=== PATIENT | female | born 1965 | race Caucasian/White ===

== ENCOUNTER 2016-03-25 09:36 | Inpatient (IN) ==
[2016-03-25] MEDS ORDERED: ONDANSETRON 4 MG/2 ML VIAL IV STA (09:56)
[2016-03-25] MEDS ORDERED: SODIUM CHLORIDE 0.9% 1,000 ML IV STA (09:56)
[2016-03-25] MEDS ORDERED: fentaNYL 100 MCG/2 ML VIAL IV STA ×2 (10:01→11:11)
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
[2016-03-25] MEDS ORDERED: ONDANSETRON 4 MG/2 ML VIAL ONE (10:11)
[2016-03-25] MEDS ORDERED: fentaNYL 100 MCG/2 ML VIAL ONE ×2 (10:12→11:12)
[2016-03-25 10:22] LABS: Basophils % 0.4 % (0.0-0.8); Eosinophils % 0.2 % (0.00-10.9); Hematocrit 31.5 VOL% (35.7-47.0); Hemoglobin 9.3 GM/DL (12.0-16.0); Immature Granulocytes % 0.9 %; Immature Granulocytes Absolute 0.05 #; Lymphocytes # 0.6 10*3/uL (1.4-4.0); Lymphocytes % 10.6 % (21.3-54.2); Mean Corpuscular HGB Conc 29.5 GM/DL (32-36); Mean Corpuscular Hemoglobin 21 PG (27-34); Mean Corpuscular Volume 71.6 FL (87-102); Mean Platelet Volume 11.8 FL (9.6-12.0); Monocytes # 0.3 10*3/uL (0.11-0.8); Monocytes % 5.3 % (1.7-12.7); Neutrophils # 4.7 10*3/uL (1.4-7.4); Neutrophils % 82.6 % (38.7-73.9); Platelet Count 193 10*3/uL (130-400); Red Cell Distribution Width 16.7 % (9.3-17.3); White Blood Count 5.7 10*3/uL (4.5-13.71)
[2016-03-25 10:42] LABS: Albumin 4.2 G/DL (3.4-5.0); Calcium 9.2 MG/DL (8.5-10.1); Osmolality,Calculated 282.1 MOS/KG (273-304); Potassium 3.9 MMOL/L (3.5-5.1); Total Protein 8.1 G/DL (6.4-8.3)
--- NOTE | 2016-03-25 10:58 | XRay Report ---
Exam: XR abdomen 2V Date: 03/25/2016 9:58 AM Comparison: 02/10/2016 Indication: Abdominal pain Findings: Lung bases are unremarkable. The liver is unremarkable. Renal contours /spleen are mostly obscured The bony structures are intact No obvious pneumoperitoneum Nonspecific GI pattern. Phleboliths are present in the true pelvis Impression: 1. Nonspecific GI pattern with moderate scattered fecal debris. PROCEDURE INTERPRETED AT [facility] DEPARTMENT OF RADIOLOGY Final Report Signed by: Dr. Atif Torres
[2016-03-25 11:07] LABS: Apearance,Urine Slightly Hazy (Clear); Bilirubin,Urine Negative (Negative); Blood, Urine Negative (Negative); Glucose,Urine (UA) Negative (Negative); Ketones,Urine 80 mg/dL (Negative); Mucus,Urine Occasional /LPF (Occasional); Nitrite,Urine Negative (Negative); Protein,Urine 30 MG/DL; Squamous Epithelial Cell,Urine Occasional /HPF (0-10); Urine Color Yellow (Yellow); Urine Specific Gravity 1.027 (1.001-1.035); Urine Urobilinogen < 2.0 EU/DL (0.2-1.0); WBC,Urine 1 /HPF (0-6)
[2016-03-25 11:16] LABS: Barbiturates Screen,Urine Negative (Negative); Benzodiazepines Screen,Urine Negative (Negative); Cannabinoid Screen,Urine Negative (Negative); Opiate Screen,Urine Negative (Negative); Phencyclidine Screen,Urine Negative (Negative)
[2016-03-25] MEDS ORDERED: FAMOTIDINE 20 MG/2 ML VIAL IV STA (11:29)
[2016-03-25] MEDS ORDERED: HYDROmorphone 2 MG/1 ML VIAL IV STA ×2 (11:30→13:59)
[2016-03-25] MEDS ORDERED: HYDROmorphone 2 MG/1 ML VIAL ONE ×2 (12:02→14:00)
[2016-03-25] MEDS ORDERED: FAMOTIDINE 20 MG/2 ML VIAL IV ONE (12:03)
[2016-03-25 12:50] LABS: Hypochromasia 2+; Microcytosis 1+; Target Cells Slight
--- NOTE | 2016-03-25 12:51 | CT Report ---
Exam: CT abdomen pelvis wo con Date: 03/25/2016 11:33 AM Comparison: 01/03/2016 Indication: Left abdominal pain history of pancreatitis Total DLP: 293.2 mGy*cm Technical: Images were obtained from the lung bases to the iliac crest continuation through the pelvis without IV or oral contrast. Axial sagittal coronal imaging available for review. Dose reduction was performed with decreasing kv and mA and automated exposure. The patient gives a history of allergy to contrast. Findings: Lung bases:No obvious infiltrate or effusion heart normal in size. Liver and Spleen: Unremarkable Gallbladder and Pancreas: Gallbladder is not well seen. Pancreas is demonstrated without focal mass lesion or bile duct or pancreatic duct dilatation Adrenals: Unremarkable Kidneys: Kidneys are otherwise unremarkable. No obvious stones or structural present. Stomach:Incompletely distended with air-fluid and debris Retroperitoneum: No enlarged lymph nodes. Aorta and IVC: The aorta and IVC are unremarkable. Bowel and Mesentery: The appendix is demonstrated without obvious abnormality. A few scattered diverticula changes are present in the rectosigmoid colon. No free fluid or mass lesions present. No obvious pneumoperitoneum Pelvis: Bladder: Incompletely distended. Fluid: No free fluid identified. Lymph nodes: No enlarged lymph nodes. Pelvic organs: The uterus is surgically absent. Phleboliths are present. Ovaries also appear to be surgically absent Osseous structures: No suspicious appearing osseous abnormalities noted. Impression: 1. Minimal diverticulosis without diverticulitis 2. No obvious free fluid or evidence of acute pancreatitis demonstrated on the noncontrast study 3. Previous hysterectomy and possible cholecystectomy Findings discussed with Dr. Prince Baltazar PROCEDURE INTERPRETED AT [facility] DEPARTMENT OF RADIOLOGY Final Report Signed by: Dr. Atif Torres
[2016-03-25] MEDS ORDERED: LACTULOSE 20 GM/30 ML UDCUP PO PRN (14:57)
[2016-03-25] MEDS ORDERED: ACETAMINOPHEN 325 MG TABLET PO PRN (14:57)
[2016-03-25] MEDS ORDERED: MORPHINE 2 MG/1 ML SYRINGE IV PRN (14:57)
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
[2016-03-25] MEDS: HYDROmorphone 2 MG/1 ML VIAL IV PRN ×2 (18:01→22:05)
[2016-03-25] MEDS: ENOXAPARIN 40 MG/0.4 ML SYRINGE SUBCUT SCH (18:04)
[2016-03-25] MEDS: METOCLOPRAMIDE 5 MG TABLET PO SCH ×2 (18:05→21:32)
[2016-03-25] MEDS: DEXTROSE 5% NACL 0.45% 1,000 ML IV SCH (18:09)
[2016-03-25] MEDS: traZODone 50 MG TABLET PO SCH (21:31)
[2016-03-25] MEDS: PANTOPRAZOLE 40 MG VIAL IV SCH (21:31)
[2016-03-25] MEDS: PHENYTOIN ER 100 MG CAPSULE PO SCH (21:32)
[2016-03-25] MEDS: FAMOTIDINE 20 MG TABLET PO SCH (21:32)
[2016-03-26] MEDS: DEXTROSE 5% NACL 0.45% 1,000 ML IV SCH ×4 (00:25→18:00)
[2016-03-26] MEDS: ONDANSETRON 4 MG/2 ML VIAL IV PRN ×3 (01:46→17:10)
[2016-03-26] MEDS: HYDROmorphone 2 MG/1 ML VIAL IV PRN ×11 (01:46→23:37)
[2016-03-26 07:16] LABS: Albumin 3.3 G/DL (3.4-5.0); Bilirubin,Total 1.1 MG/DL (0.2-1.0); Calcium 8.4 MG/DL (8.5-10.1); Osmolality,Calculated 285.8 MOS/KG (273-304); Potassium 3.8 MMOL/L (3.5-5.1); Total Protein 5.8 G/DL (6.4-8.3)
[2016-03-26 07:36] LABS: Basophils % 0.3 % (0.0-0.8); Eosinophils % 0.5 % (0.00-10.9); Hematocrit 24.9 VOL% (35.7-47.0); Immature Granulocytes % 0.3 %; Immature Granulocytes Absolute 0.01 #; Lymphocytes # 0.8 10*3/uL (1.4-4.0); Lymphocytes % 20.9 % (21.3-54.2); Mean Corpuscular HGB Conc 28.9 GM/DL (32-36); Mean Corpuscular Hemoglobin 21 PG (27-34); Monocytes # 0.4 10*3/uL (0.11-0.8); Monocytes % 10.7 % (1.7-12.7); Neutrophils # 2.5 10*3/uL (1.4-7.4); Neutrophils % 67.3 % (38.7-73.9); Red Cell Distribution Width 16.9 % (9.3-17.3)
[2016-03-26 07:41] LABS: Red Blood Count 3.46 10*6/uL (3.8-5.5); White Blood Count 3.6 10*3/uL (4.5-13.71)
[2016-03-26 07:42] LABS: Hemoglobin 7.2 GM/DL (12.0-16.0); Platelet Count 147 10*3/uL (130-400)
[2016-03-26 07:59] LABS: Hypochromasia 1+; Microcytosis 1+; Ovalocytes Slight
[2016-03-26 08:00] LABS: Platelet Estimate Adequate
[2016-03-26] MEDS: METOCLOPRAMIDE 5 MG TABLET PO SCH ×4 (08:30→20:25)
[2016-03-26] MEDS: PANTOPRAZOLE 40 MG VIAL IV SCH ×3 (08:47→20:25)
[2016-03-26] MEDS: PHENYTOIN ER 100 MG CAPSULE PO SCH ×4 (08:48→20:24)
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
[2016-03-26] MEDS: LIPASE/PROTEASE/AMYLASE 4,200 UNITS CAPSULE PO SCH ×4 (10:57→20:29)
--- NOTE | 2016-03-26 12:58 | Hospitalist Progress Note ---
Assessment and Plan (1) Epigastric pain Status: Acute Current Visit: Yes (2) Anemia Status: Chronic Assessment and plan: we will transfuse two units of blood today and recheck H/H in the morning Current Visit: Yes (3) Acute on chronic pancreatitis Status: Acute Assessment and plan: Lipase is normal Abdomen is generally tender She is requesting that her Duragesic patch be restarted, we will restart this but DECREASE the frequency of her Dilaudid Current Visit: No Hospitalist: Subjective Interval history: Ms. Peralta seems to be resting comfortably this morning. She is still having tenderness on exam. She repeatedly tells me that it usually takes 2-3 days of IV fluids and narcotics for her to improve. She states she is not eating anything off of her clear liquid diet, that she has been too nauseated. She states the Zofran really does not help her much. She denies vomiting or diarrhea. Her H/H on arrival was 9/, with hydration she has dropped to 7/24. She denies any active bleeding, abdomen does not seem acutely tender, I have seen her before and her presentation is very similar. Exam - Constitutional Vitals: Period Temp Pulse Resp BP Sys/Oscar Pulse Ox Last 24 Hr 97.5 F-99.2 F 66-83 16-20 113-158/54-104 96-100 General appearance: no acute distress - Head Head exam: Present: normal inspection, normocephalic - Eye Eye exam: Present: EOMI. Absent: scleral icterus Pupils: Present: SABI, normal accommodation - ENT ENT exam: Present: normal exam, normal oropharynx - Neck Neck exam: Present: normal inspection. Absent: lymphadenopathy - Respiratory Respiratory exam: Present: clear to auscultation bilaterally. Absent: wheezes - Cardiovascular Cardiovascular exam: Present: regular rate and rhythm. Absent: tachycardia - GI/Abdominal GI/Abdominal exam: Present: normal bowel sounds, tenderness (generalized tenderness ), soft - Extremities Exam Extremities exam: Present: normal inspection, full ROM. Absent: edema - Back Exam Back exam: Present: normal inspection. Absent: muscle spasm - Neurological Exam Neurological exam: Present: alert, oriented X3 - Psychiatric Psychiatric exam: Present: normal affect, normal mood - Skin Skin exam: Present: normal color, warm, dry Results - Labs CBC & BMP: 03/26/16 07:21 03/26/16 06:23 Lab Results: I have reviewed the past 24 hour labs
[2016-03-26] MEDS ORDERED: SODIUM CHLORIDE 0.9% 250 ML IV PRN (16:53)
[2016-03-26] MEDS: ENOXAPARIN 40 MG/0.4 ML SYRINGE SUBCUT SCH (17:06)
[2016-03-26] MEDS: traZODone 50 MG TABLET PO SCH ×2 (19:43→20:24)
[2016-03-26] MEDS: FAMOTIDINE 20 MG TABLET PO SCH ×2 (19:44→20:25)
[2016-03-27] MEDS: HYDROmorphone 2 MG/1 ML VIAL IV PRN ×9 (01:33→22:30)
[2016-03-27 05:23] LABS: Basophils % 0.3 % (0.0-0.8); Eosinophils # 0.1 10*3/uL (0.0-0.87); Hematocrit 28.8 VOL% (35.7-47.0); Hemoglobin 8.5 GM/DL (12.0-16.0); Lymphocytes # 1.2 10*3/uL (1.4-4.0); Lymphocytes % 39.7 % (21.3-54.2); Mean Corpuscular HGB Conc 29.5 GM/DL (32-36); Mean Corpuscular Hemoglobin 22 PG (27-34); Mean Corpuscular Volume 74.8 FL (87-102); Mean Platelet Volume 12.2 FL (9.6-12.0); Monocytes # 0.4 10*3/uL (0.11-0.8); Monocytes % 12.8 % (1.7-12.7); Neutrophils # 1.4 10*3/uL (1.4-7.4); Neutrophils % 44.2 % (38.7-73.9); Platelet Count 143 10*3/uL (130-400); Red Blood Count 3.85 10*6/uL (3.8-5.5); Red Cell Distribution Width 18.3 % (9.3-17.3); White Blood Count 3.1 10*3/uL (4.5-13.71)
[2016-03-27 05:44] LABS: Calcium 8.3 MG/DL (8.5-10.1); Osmolality,Calculated 287.6 MOS/KG (273-304); Potassium 3.6 MMOL/L (3.5-5.1)
[2016-03-27 05:51] LABS: % Iron Saturation 6.3 % (18-50); Ferritin 4.9 ng/ml (8-252)
[2016-03-27 06:02] LABS: Hypochromasia 1+; Ovalocytes Slight; Platelet Estimate Normal
[2016-03-27] MEDS: PANTOPRAZOLE 40 MG VIAL IV SCH ×2 (08:10→20:19)
[2016-03-27] MEDS: PHENYTOIN ER 100 MG CAPSULE PO SCH ×3 (08:10→20:19)
[2016-03-27] MEDS: LIPASE/PROTEASE/AMYLASE 4,200 UNITS CAPSULE PO SCH ×3 (08:10→18:22)
[2016-03-27] MEDS: METOCLOPRAMIDE 5 MG TABLET PO SCH ×4 (08:10→20:18)
[2016-03-27] MEDS: DEXTROSE 5% NACL 0.45% 1,000 ML IV SCH ×3 (08:26→16:19)
--- NOTE | 2016-03-27 08:26 | Hospitalist Progress Note ---
Assessment and Plan (1) Abdominal pain Status: Chronic Assessment and plan: Both documented episodes of pancreatitis and visits without objective documentation. Extensive imaging over the last year does not show mass etc. Current Visit: No (2) Anemia Status: Chronic Assessment and plan: Iron deficient pattern, transfused 03/26. Has reported bright blood per rectum, record review shows gradual progression of series of CBC since September. Current Visit: Yes Qualifiers: Anemia type: iron deficiency Iron deficiency anemia type: chronic blood loss Qualified Code(s): D50.0 - Iron deficiency anemia secondary to blood loss (chronic) Hospitalist: Subjective Interval history: 50 yo female followed in pain clinic for chronic pain disorder. Fpc therapy for chronic pancreatitis with enzyme replacement therapy. Several ER visits over the last several months with normal lipase levels ( last substantial elevation was in September) and MRI of pancreas in December showing no mass etc. On this occasion admitted with abdominal pain with emesis. Initial lipase was normal and comparable to prior determinations with CT of the abdomen showing no inflammatory changes and no pancreatic calcifications. This morning lipase is reported at 409. Received blood transfusion for rehydration anemia with iron deficit on pretransfusion lab work. Anemia has been progressive since September admission. She did eat some yesterday. Exam - Constitutional Vitals: Period Temp Pulse Resp BP Sys/Oscar Pulse Ox Last 24 Hr 97.3 F-97.9 F 52-90 18-20 84-129/39-85 96-98 General appearance: no acute distress, over weight - Respiratory Respiratory exam: Present: clear to auscultation bilaterally. Absent: rales, rhonchi, wheezes - Cardiovascular Cardiovascular exam: Present: regular rate and rhythm, other (systolic ejection click) - GI/Abdominal GI/Abdominal exam: Present: hyperactive bowel sounds, tenderness. Absent: ascites, distended - Extremities Exam Extremities exam: Absent: edema - Neurological Exam Neurological exam: Present: alert, oriented X3 Results - Labs CBC & BMP: 03/27/16 04:31 03/27/16 04:31 Labs: iron 22/312 6% lipase 409
--- NOTE | 2016-03-27 10:17 | Gastrointestinal Progress Note ---
Assessment and Plan (1) Abdominal pain Status: Chronic Assessment and plan: 03/27-No nausea but pain continues. Appears comfortable at present. Lipase elevated. No BM yet for fecal elastase test. Iron studies low. Plan and addendum to follow by Dr Mercer. 03/26-4 day history of LUQ with associated N/V and diarrhea. Afebrile. Hx of chronic pancreatitis. Lipase 186. CT w/o contrast negative. Plan and addendum to follow by Dr Mercer. Current Visit: No Gastroenterology - PN: Subj Interval history: CC: Abd pain Pt is awake, alert, sitting up in bed. States the pain seems to be the same at present time. She states she has not had nausea since last night. Her lipase levels are elevated today at 409. She also had iron studies done which are low. She does not recall having anemia in the past other than childhood and . She states that she does bleed bright red blood, what she describes as a lot, for a week out of every month. She states this has been going on for a while due to she has not had time to see Dr Keene to have consultation for her hemorrhoids. She received 2 units last night and hgb 8.5, up from 7.2. No overt bleeding at present. Abdomen is soft, tender to palpation. ROS: Denies SOB or chest pain Exam (Progress Note) - Constitutional Vitals: Period Temp Pulse Resp BP Sys/Oscar Pulse Ox Last 24 Hr 97.3 F-97.9 F 52-90 18-20 84-129/39-85 96-98 - Other Additional findings: General appearance: normal weight, no acute distress - Head Head exam: Present: normal inspection, normocephalic - Eye Eye exam: Present: other (lids and conjunctiva unremarkable). Absent: scleral icterus - ENT ENT exam: Present: normal exam, normal oropharynx - Neck Neck exam: Present: normal inspection - Respiratory Respiratory exam: Present: clear to auscultation bilaterally. Absent: rales, rhonchi, wheezes - Cardiovascular Cardiovascular exam: Present: regular rate and rhythm. Absent: diastolic murmur , JVD, systolic murmur - GI/Abdominal GI/Abdominal exam: Present: normal bowel sounds, soft. Absent: ascites, distended, mass, organomegaly, tenderness - Extremities Exam Extremities exam: Present: normal inspection, full ROM - Back Exam Back exam: Present: normal inspection - Neurological Exam Neurological exam: Present: alert, oriented X3 - Psychiatric Psychiatric exam: Present: normal affect, normal mood - Skin Skin exam: Present: normal color, warm, dry Results - Labs CBC & BMP: 03/27/16 04:31 03/27/16 04:31 Lab Results: I have reviewed the past 24 hour labs
[2016-03-27] MEDS: ENOXAPARIN 40 MG/0.4 ML SYRINGE SUBCUT SCH (18:22)
[2016-03-27] MEDS: traZODone 50 MG TABLET PO SCH (20:19)
[2016-03-27] MEDS: FAMOTIDINE 20 MG TABLET PO SCH (20:19)
[2016-03-27] MEDS: ONDANSETRON 4 MG/2 ML VIAL IV PRN (21:16)
[2016-03-28] MEDS: DEXTROSE 5% NACL 0.45% 1,000 ML IV SCH ×3 (00:20→16:17)
[2016-03-28] MEDS: HYDROmorphone 2 MG/1 ML VIAL IV PRN ×9 (00:27→21:34)
[2016-03-28] MEDS: METOCLOPRAMIDE 5 MG TABLET PO SCH ×4 (08:03→21:36)
[2016-03-28] MEDS: ONDANSETRON 4 MG/2 ML VIAL IV PRN (08:03)
[2016-03-28] MEDS: LIPASE/PROTEASE/AMYLASE 4,200 UNITS CAPSULE PO SCH ×3 (08:10→19:00)
[2016-03-28] MEDS: PANTOPRAZOLE 40 MG VIAL IV SCH ×2 (09:34→21:36)
[2016-03-28] MEDS: PHENYTOIN ER 100 MG CAPSULE PO SCH ×3 (09:34→21:36)
--- NOTE | 2016-03-28 10:13 | Gastrointestinal Progress Note ---
Assessment and Plan (1) Abdominal pain Status: Chronic Assessment and plan: 03/28-Nausea/vomiting overnight. Now improved. Taking in more orally at present. No overt bleeding. Stool study pending. Recheck h/h today. Plan and addendum to follow by Dr Mercer. 03/27-No nausea but pain continues. Appears comfortable at present. Lipase elevated. No BM yet for fecal elastase test. Iron studies low. Plan and addendum to follow by Dr Mercer. 03/26-4 day history of LUQ with associated N/V and diarrhea. Afebrile. Hx of chronic pancreatitis. Lipase 186. CT w/o contrast negative. Plan and addendum to follow by Dr Mercer. Current Visit: No Gastroenterology - PN: Subj Interval history: CC: Abd pain/pancreatitis Pt is awake and alert lying in bed. States she had two episodes of nausea and vomiting, one last night and one this morning. States that she feels some better at present. Denies abdominal pain at the time. Afebrile. She has had no rectal bleeding as well. She has been able to take in some orally over the past day. Hgb not rechecked today. Abdomen is soft, nontender. ROS: Denies SOB or chest pain Exam (Progress Note) - Constitutional Vitals: Period Temp Pulse Resp BP Sys/Oscar Pulse Ox Last 24 Hr 97.4 F-98.2 F 61-68 18-20 132-153/63-72 96-98 - Other Additional findings: General appearance: normal weight, no acute distress - Head Head exam: Present: normal inspection, normocephalic - Eye Eye exam: Present: other (lids and conjunctiva unremarkable). Absent: scleral icterus - ENT ENT exam: Present: normal exam, normal oropharynx - Neck Neck exam: Present: normal inspection - Respiratory Respiratory exam: Present: clear to auscultation bilaterally. Absent: rales, rhonchi, wheezes - Cardiovascular Cardiovascular exam: Present: regular rate and rhythm. Absent: diastolic murmur , JVD, systolic murmur - GI/Abdominal GI/Abdominal exam: Present: normal bowel sounds, soft. Absent: ascites, distended, mass, organomegaly, tenderness - Extremities Exam Extremities exam: Present: normal inspection, full ROM - Back Exam Back exam: Present: normal inspection - Neurological Exam Neurological exam: Present: alert, oriented X3 - Psychiatric Psychiatric exam: Present: normal affect, normal mood - Skin Skin exam: Present: normal color, warm, dry Results - Labs CBC & BMP: 03/27/16 04:31 03/27/16 04:31
--- NOTE | 2016-03-28 10:21 | Hospitalist Progress Note ---
Assessment and Plan (1) Abdominal pain Status: Chronic Assessment and plan: Both documented episodes of pancreatitis and visits without objective documentation. Extensive imaging over the last year does not show mass etc. Current Visit: No (2) Anemia Status: Chronic Assessment and plan: Iron deficient pattern, transfused 03/26. Has reported bright blood per rectum, record review shows gradual progression in series of CBC since September. Current Visit: Yes Qualifiers: Anemia type: iron deficiency Iron deficiency anemia type: chronic blood loss Qualified Code(s): D50.0 - Iron deficiency anemia secondary to blood loss (chronic) Hospitalist: Subjective Interval history: 50 yo female with chronic pain disorder with periods of abdominal pain with and without biochemical and imaging studies supportive of pancreatitis. She is on chronic management through pain clinic with therapy for possible chronic pancreatitis. Still with nausea and some emesis with liquid intake, steady abdominal pain. Vitals stable remains afebrile. Exam - Constitutional Vitals: Period Temp Pulse Resp BP Sys/Oscar Pulse Ox Last 24 Hr 97.4 F-98.2 F 61-68 18-20 132-153/63-72 96-98 General appearance: no acute distress, over weight - Respiratory Respiratory exam: Present: clear to auscultation bilaterally. Absent: rales, rhonchi, wheezes - Cardiovascular Cardiovascular exam: Present: regular rate and rhythm, systolic murmur ( systolic ejection click, 1-2/6 systolic ejection murmur) - GI/Abdominal GI/Abdominal exam: Present: normal bowel sounds. Absent: ascites, distended - Extremities Exam Extremities exam: Absent: edema - Neurological Exam Neurological exam: Present: alert, oriented X3 Results - Labs CBC & BMP: 03/27/16 04:31 03/27/16 04:31
[2016-03-28 11:06] LABS: Hematocrit 31.9 VOL% (35.7-47.0); Hemoglobin 9.8 GM/DL (12.0-16.0)
[2016-03-28] MEDS: ENOXAPARIN 40 MG/0.4 ML SYRINGE SUBCUT SCH (19:01)
[2016-03-28] MEDS: FAMOTIDINE 20 MG TABLET PO SCH (21:36)
[2016-03-28] MEDS: traZODone 50 MG TABLET PO SCH (21:36)
[2016-03-29] MEDS: DEXTROSE 5% NACL 0.45% 1,000 ML IV SCH ×4 (00:28→23:06)
[2016-03-29] MEDS: HYDROmorphone 2 MG/1 ML VIAL IV PRN ×10 (00:29→23:03)
--- NOTE | 2016-03-29 08:32 | Hospitalist Progress Note ---
Assessment and Plan (1) Abdominal pain Status: Chronic Assessment and plan: Both documented episodes of pancreatitis and visits without objective documentation. Extensive imaging over the last year does not show mass etc. Current Visit: No (2) Anemia Status: Chronic Assessment and plan: Iron deficient pattern, transfused 03/26. Has reported bright blood per rectum, record review shows gradual progression in series of CBC since September. Current Visit: Yes Qualifiers: Anemia type: iron deficiency Iron deficiency anemia type: chronic blood loss Qualified Code(s): D50.0 - Iron deficiency anemia secondary to blood loss (chronic) Hospitalist: Subjective Interval history: 50 yo female chronic pain disorder with periods of abdominal pain with and without imaging and clinical chemistry evidence of pancreatitis. She is followed in pain clinic and treated empirically for possible chronic pancreatitis. She describes episode of emesis yesterday with 2 liquid bowel movements without blood. She has iron deficiency anemia. Abdominal pain persists. Vital stable. Exam - Constitutional Vitals: Period Temp Pulse Resp BP Sys/Oscar Pulse Ox Last 24 Hr 97.3 F-98.4 F 67-80 18-20 126-179/67-80 95-98 General appearance: no acute distress, over weight - Respiratory Respiratory exam: Present: clear to auscultation bilaterally. Absent: rales, rhonchi, wheezes - Cardiovascular Cardiovascular exam: Present: regular rate and rhythm - GI/Abdominal GI/Abdominal exam: Present: normal bowel sounds, tenderness - Extremities Exam Extremities exam: Absent: edema - Neurological Exam Neurological exam: Present: alert, oriented X3 Results - Labs CBC & BMP: 03/28/16 10:53 03/27/16 04:31
[2016-03-29] MEDS: METOCLOPRAMIDE 5 MG TABLET PO SCH ×4 (08:36→21:16)
[2016-03-29] MEDS: LIPASE/PROTEASE/AMYLASE 4,200 UNITS CAPSULE PO SCH ×3 (08:36→16:01)
[2016-03-29] MEDS: PHENYTOIN ER 100 MG CAPSULE PO SCH ×3 (08:36→21:16)
[2016-03-29] MEDS: PANTOPRAZOLE 40 MG VIAL IV SCH ×2 (08:37→21:15)
--- NOTE | 2016-03-29 17:51 | Gastrointestinal Progress Note ---
Assessment and Plan (1) Abdominal pain Status: Chronic Assessment and plan: Patient appears stable and more comfortable today. She has no objective significant findings on physical exam. I am going to consult Dr. Keene of surgery to see her regarding her chronically bleeding hemorrhoids for his opinion. I think she will need some intervention for these probably as an outpatient. I will sign off. Please call if other questions arise. Current Visit: No Gastroenterology - PN: Subj Interval history: Patient appears better with less abdominal pain. She denies nausea today. She states that she is eating fairly well. Hemoglobin up above 10 after transfusion 2 units packed red blood cells. She has had previous evaluation for her iron deficiency with EGD and colonoscopy recently with large internal hemorrhoids noted. She does have frequent bleeding from these. Exam (Progress Note) - Constitutional Vitals: Period Temp Pulse Resp BP Sys/Oscar Pulse Ox Last 24 Hr 97.2 F-98.6 F 63-80 18-20 126-161/67-88 95-98 General appearance: no acute distress - Head Head exam: Present: normocephalic, atraumatic - Eye Eye exam: Present: EOMI. Absent: scleral icterus - Respiratory Respiratory exam: Present: clear to auscultation bilaterally - Cardiovascular Cardiovascular exam: Present: regular rate and rhythm. Absent: gallop, rubs - GI/Abdominal GI/Abdominal exam: Present: normal bowel sounds, soft. Absent: distended, organomegaly, tenderness - Extremities Exam Extremities exam: Absent: calf tenderness, edema - Neurological Exam Neurological exam: Present: alert, oriented X3, CN II-XII intact. Absent: motor sensory deficit Results - Labs CBC & BMP: 03/28/16 10:53 03/27/16 04:31 Lab Results: I have reviewed the past 24 hour labs
[2016-03-29] MEDS: ENOXAPARIN 40 MG/0.4 ML SYRINGE SUBCUT SCH (18:14)
[2016-03-29] MEDS: traZODone 50 MG TABLET PO SCH (21:16)
[2016-03-29] MEDS: FAMOTIDINE 20 MG TABLET PO SCH (21:16)
[2016-03-30] MEDS: HYDROmorphone 2 MG/1 ML VIAL IV PRN ×9 (01:15→18:31)
[2016-03-30 06:24] LABS: Basophils % 0.6 % (0.0-0.8); Eosinophils # 0.2 10*3/uL (0.0-0.87); Eosinophils % 4.9 % (0.00-10.9); Hematocrit 31.2 VOL% (35.7-47.0); Hemoglobin 9.4 GM/DL (12.0-16.0); Immature Granulocytes % 0.3 %; Immature Granulocytes Absolute 0.01 #; Lymphocytes # 0.9 10*3/uL (1.4-4.0); Lymphocytes % 26.6 % (21.3-54.2); Mean Corpuscular HGB Conc 30.1 GM/DL (32-36); Mean Corpuscular Hemoglobin 22 PG (27-34); Mean Corpuscular Volume 74.5 FL (87-102); Mean Platelet Volume 12.7 FL (9.6-12.0); Monocytes # 0.5 10*3/uL (0.11-0.8); Neutrophils # 1.9 10*3/uL (1.4-7.4); Neutrophils % 54.6 % (38.7-73.9); Platelet Count 157 10*3/uL (130-400); Red Blood Count 4.19 10*6/uL (3.8-5.5); Red Cell Distribution Width 17.9 % (9.3-17.3); White Blood Count 3.5 10*3/uL (4.5-13.71)
[2016-03-30] MEDS: DEXTROSE 5% NACL 0.45% 1,000 ML IV SCH ×3 (06:24→21:38)
[2016-03-30 06:48] LABS: Calcium 8.6 MG/DL (8.5-10.1)
[2016-03-30 06:49] LABS: Hypochromasia 1+; Microcytosis 1+; Osmolality,Calculated 284.7 MOS/KG (273-304); Ovalocytes Slight; Platelet Estimate Normal; Potassium 3.2 MMOL/L (3.5-5.1)
[2016-03-30] MEDS: METOCLOPRAMIDE 5 MG TABLET PO SCH ×4 (07:58→20:13)
[2016-03-30] MEDS: LIPASE/PROTEASE/AMYLASE 4,200 UNITS CAPSULE PO SCH ×3 (07:58→17:15)
[2016-03-30] MEDS: PANTOPRAZOLE 40 MG VIAL IV SCH ×2 (09:54→20:13)
[2016-03-30] MEDS: PHENYTOIN ER 100 MG CAPSULE PO SCH ×3 (09:54→20:13)
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
[2016-03-30] MEDS: ONDANSETRON 4 MG/2 ML VIAL IV PRN (17:14)
[2016-03-30] MEDS: ENOXAPARIN 40 MG/0.4 ML SYRINGE SUBCUT SCH (17:15)
--- NOTE | 2016-03-30 19:22 | Hospitalist Progress Note ---
Assessment and Plan (1) Abdominal pain Status: Chronic Assessment and plan: Patient has chronic pancreatitis. Switching to fentanyl pain patch Current Visit: No (2) Acute on chronic pancreatitis Status: Acute Current Visit: No (3) Nausea and vomiting Status: Resolved Current Visit: No (4) Hypokalemia Status: Resolved Current Visit: No Hospitalist: Subjective Interval history: The patient did have some abdominal discomfort when she ate some chicken this afternoon. No other acute changes she is eager to switch back to her pain patch as she transitions to be discharged to home. Home soon. Exam - Constitutional Vitals: Period Temp Pulse Resp BP Sys/Oscar Pulse Ox Last 24 Hr 97.1 F-98.9 F 62-75 15-20 126-183/64-87 92-98 General appearance: no acute distress - Respiratory Respiratory exam: Present: clear to auscultation bilaterally - Cardiovascular Cardiovascular exam: Present: regular rate and rhythm - GI/Abdominal GI/Abdominal exam: Present: normal bowel sounds - Extremities Exam Extremities exam: Present: full ROM - Neurological Exam Neurological exam: Present: alert, oriented X3 Results - Labs CBC & BMP: 03/30/16 05:09 03/30/16 05:09 Specialty Discharge - Follow Up or Referrals Follow up with: Levi Keene MD [Physician] - 1 Week
[2016-03-30] MEDS: traZODone 50 MG TABLET PO SCH (20:13)
[2016-03-30] MEDS: FAMOTIDINE 20 MG TABLET PO SCH (20:16)
[2016-03-30] MEDS ORDERED: fentaNYL 100 MCG/HR PATCH TRANSDERM SCH (21:00)
[2016-03-31] MEDS: DEXTROSE 5% NACL 0.45% 1,000 ML IV SCH (00:36)
[2016-03-31] MEDS: METOCLOPRAMIDE 5 MG TABLET PO SCH (07:50)
[2016-03-31] MEDS: LIPASE/PROTEASE/AMYLASE 4,200 UNITS CAPSULE PO SCH (07:50)
[2016-03-31] MEDS: ONDANSETRON 4 MG/2 ML VIAL IV PRN (07:50)
[2016-03-31 08:08] VITALS: BP 148/75
--- NOTE | 2016-03-31 08:11 | Discharge Summary ---
Hospital Course - Hospital Course Hospital Course: This hospitalization included patient admitted for abdominal pain secondary to acute on chronic pancreatitis. She was given IV pain medicine for symptomatic treatment as well as IV fluids. Gastroenterology was consulted and did other workup to include pancreatic enzymes as well as further direction for patient's anemia. She had evidence of bleeding hemorrhoids hemorrhoids. Dr. Keene was consulted for this issue. He recommended further follow-up with patient on an outpatient basis. The patient remained hemodynamically stable. Her IV pain medicines was transitioned to fentanyl patch. She continued to do acceptable. Still had some nausea intermittently which is a chronic issue for her. Serum potassium was also supplemented during this hospitalization. Patient states she was really eager to go home. No fevers or chills. She is reached maximal hospitalization is prepared for discharge. Diagnosis - Discharge Diagnosis (1) Abdominal pain Status: Chronic (2) Acute on chronic pancreatitis Status: Chronic (3) Nausea and vomiting Status: Resolved (4) Hypokalemia Status: Resolved (5) Chronic pancreatitis Status: Chronic Specialty Discharge - Follow Up or Referrals Follow up with: Levi Keene MD [Physician] - 1 Week Discharge Plan - Discharge Data Disposition: Disch To Home/Self Care Condition at Discharge: Stable Discharge Diet: advance to your usual diet Activity: resume usual activities as tolerated Contact your physician if you experience:: fever over 101 - Discharge Medications Continue Phenytoin ER Cap [Dilantin Cap] 100 mg PO TID traZODone [Desyrel] 100 mg PO BEDTIME Pancrelipase 4,200 Units [Pancreaze 4,200 Units] 1 capsule PO TID W/MEALS # 90 capsule fentaNYL 100 MCG/HR PATCH [Duragesic 100 Patch] 1 patch TRANSDERM Q3DAY Pantoprazole Tab [Protonix Tab] 40 mg PO BID #60 tablet Ondansetron Odt Tab [Zofran Odt] 4 mg PO Q4H PRN PRN Reason: Nausea Metoclopramide Tab [Reglan Tab] 5 mg PO ACHS #120 tablet Ranitidine Tab [Zantac Tab] 150 mg PO BEDTIME #60 tablet - Follow Up or Referral Follow Up: Levi Keene MD [Physician] - 1 Week - Forms/Instructions Additional Discharge Instructions: Follow-up with Dr. Patricio in one week. Exam - Constitutional Vitals: Period Temp Pulse Resp BP Sys/Oscar Pulse Ox Last 24 Hr 96.5 F-97.5 F 58-75 16-20 124-161/60-78 95-98 General appearance: under weight - Head Head exam: Present: normal inspection - Eye Eye exam: Present: EOMI - Respiratory Respiratory exam: Present: clear to auscultation bilaterally - Cardiovascular Cardiovascular exam: Present: regular rate and rhythm - GI/Abdominal GI/Abdominal exam: Present: normal bowel sounds - Extremities Exam Extremities exam: Present: normal inspection - Neurological Exam Neurological exam: Present: alert, oriented X3, CN II-XII intact - Psychiatric Psychiatric exam: Present: normal affect, normal mood - Skin Skin exam: Present: normal color Discharge Results Procedures and tests throughout hospitalization: Pending Orders 03/27/16 18:33 Pancreatic Elastase in Stool Routine Labs on day of discharge: Labs from last 24 hours 03/31/16 02:23 Potassium 3.2 L DS: Provider Date of admission: 03/25/16 15:07 Primary care physician: . No PCP Attending physician on admission: Roberto Ramos M.D. Consults: 03/25/16 15:38 Consult to Physician [CONS] Routine Comment: abdominal pain / h/o pancreatitis Consulting Provider: Atif Mercer Consulting Provider Notified: Yes When should Consulting Provider be notified: Now Consult to Specialist Group: Gastroenterology When should Consulting Provider be notified: Now Person Notified: PANCHO Date Notified: 03/26/16 Time Notified: 08:44 03/25/16 17:12 Consult to Pharmacy [CONS] Routine Reason for Pharmacy Consult: Adjust Meds Renal Funct 03/29/16 17:51 Consult to Physician [CONS] Routine Comment: bleeding hemorrhoids Consulting Provider: Levi Keene Consulting Provider Notified: Yes When should Consulting Provider be notified: In am Discharging clinician: Elmo Jamison Jr., MD
[2016-03-31] MEDS ORDERED: POTASSIUM CHLORIDE 20 MEQ/15 ML UDCUP PO ONE ×2 (09:00→20:00)
[2016-04-02] MEDS ORDERED: fentaNYL 100 MCG/HR PATCH TRANSDERM SCH (09:00)
== END 2016-03-31 10:00 | disposition home or self-care (01) | DRG 440 ==
LOC: N.ED 09:36 → N.EDINP 14:57 → SUATTDRO 15:07 → N.EDINP 16:33 → N.4E 16:53
PROVIDERS: ADMIT Internal Medicine; ATTEND Internal Medicine Cardiovascular Disease

== ENCOUNTER 2016-10-08 13:55 | Inpatient (IN) ==
[2016-10-08 14:30] LABS: Red Blood Count 4.69 MC/CUMM (3.8-5.5); White Blood Count 6.5 T/CUMM (4-12)
[2016-10-08 14:31] LABS: Basophils % 0.3 % (0.0-0.8); Hematocrit 37.4 VOL% (35.7-47.0); Immature Granulocytes % 1.1 %; Immature Granulocytes Absolute 0.07 #; Lymphocytes # 0.7 10*3/uL (1.4-4.0); Lymphocytes % 11.2 % (21.3-54.2); Mean Corpuscular HGB Conc 32.1 GM/DL (32-36); Mean Corpuscular Hemoglobin 26 PG (27-34); Mean Corpuscular Volume 79.7 FL (87-102); Mean Platelet Volume 12.5 FL (9.6-12.0); Monocytes # 0.3 10*3/uL (0.11-0.8); Monocytes % 4.9 % (1.7-12.7); Neutrophils # 5.4 10*3/uL (1.4-7.4); Neutrophils % 82.5 % (38.7-73.9); Platelet Count 166 T/CUMM (130-400)
[2016-10-08] MEDS ORDERED: ONDANSETRON 4 MG/2 ML VIAL IV STA ×2 (14:37→19:45)
[2016-10-08] MEDS ORDERED: SODIUM CHLORIDE 0.9% 1,000 ML IV STA (14:37)
[2016-10-08] MEDS ORDERED: MORPHINE 2 MG/1 ML SYRINGE IV STA (14:37)
[2016-10-08] MEDS ORDERED: HYDROmorphone 2 MG/1 ML VIAL IV STA ×2 (14:41→16:29)
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
[2016-10-08 14:51] LABS: Albumin 3.9 G/DL (3.4-5.0); Calcium 9.5 MG/DL (8.5-10.1); Osmolality,Calculated 280.4 MOS/KG (273-304); Potassium 4.1 MMOL/L (3.5-5.1); Total Protein 7.2 G/DL (6.4-8.3)
[2016-10-08] MEDS ORDERED: HYDROmorphone 2 MG/1 ML VIAL ONE (15:16)
[2016-10-08] MEDS ORDERED: ONDANSETRON 4 MG/2 ML VIAL ONE ×2 (15:16→19:48)
[2016-10-08] MEDS ORDERED: diphenhydrAMINE 50 MG/1 ML VIAL IV STA (15:36)
[2016-10-08] MEDS ORDERED: diphenhydrAMINE 50 MG/1 ML VIAL ONE (15:39)
--- NOTE | 2016-10-08 15:41 | XRay Report ---
Exam: XR KUB Date: 10/08/2016 2:36 PM Comparison: 08/29/2016 Indication: Generalized abdominal pain Technique:[Supine abdomen] Findings: Decreased gas in the bowel with nonobstructed bowel gas pattern. Stable calcifications and postoperative findings in the pelvis. Degenerative changes are noted. Impression: Nonobstructed bowel gas pattern. Stable calcifications in the pelvis with post operative findings. PROCEDURE INTERPRETED AT [facility] DEPARTMENT OF RADIOLOGY Final Report Signed by: Dr. Lina Zaidi
[2016-10-08 19:19] LABS: Apearance,Urine CLEAR (Clear); Bacteria,Urine Occasional /HPF (Few); Bilirubin,Urine Negative (Negative); Blood, Urine Negative (Negative); Glucose,Urine (UA) Negative (Negative); Ketones,Urine 80 mg/dL (Negative); Mucus,Urine Occasional /LPF (Occasional); Nitrite,Urine Negative (Negative); Protein,Urine Negative; RBC,Urine 1 /HPF (0-4); Squamous Epithelial Cell,Urine Occasional /HPF (0-10); Urine Color Yellow (Yellow); Urine Specific Gravity 1.026 (1.001-1.035); WBC,Urine 5 /HPF (0-6)
[2016-10-08] MEDS ORDERED: ACETAMINOPHEN 325 MG TABLET PO PRN (19:28)
[2016-10-08] MEDS ORDERED: ZALEPLON 5 MG CAPSULE PO PRN (19:28)
[2016-10-08] MEDS ORDERED: traMADol 50 MG TABLET PO PRN (19:30)
[2016-10-08] MEDS ORDERED: ONDANSETRON ODT 4 MG TABLET PO PRN (19:30)
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
--- NOTE | 2016-10-08 20:57 | CT Report ---
CT abdomen pelvis wo con Indication: Pancreatitis. Comparison: CT abdomen and pelvis 08/29/2016. Technique: CT of the abdomen and pelvis was performed without administration of intravenous contrast. The CT examination was performed using one or more of the following dose reduction techniques: Automatic exposure control, adjustment of the mA and kV according to patient size, use of acute or iterative reconstruction techniques. Findings: Complete evaluation of solid organs, vascular structures, and bowel wall is not possible secondary to lack of intravenous contrast. Specifically, complications of acute pancreatitis including hemorrhagic pancreatitis and pancreatic necrosis cannot be fully evaluated secondary to lack of intravenous contrast. Lower chest: No acute findings are noted within the lower chest. Liver: The liver demonstrates no evidence of focal hepatic mass or evidence of acute pathology. Gallbladder: Gallbladder appears contracted. Spleen: Spleen demonstrates no significant abnormality. Pancreas: Minimal peripancreatic fat stranding is suggested. No ductal dilatation or distinct pancreatic mass is demonstrated. Note is made that there is only limited evaluation of the pancreas possible secondary to lack of intravenous contrast. Adrenal glands: The adrenal glands demonstrate no significant abnormalities. Kidneys: Kidneys demonstrate no significant abnormality. Aorta: The aorta demonstrates no acute findings. Inferior vena cava: Inferior vena cava is normal in appearance. Lymph nodes: No adenopathy is noted within the abdomen or pelvis. Stomach and bowel: The appendix is enlarged measuring up to 12 mm in size. No overt fat stranding is present within the periappendiceal soft tissues. The stomach and small bowel demonstrate no significant abnormalities. Total colonic diverticulosis is present without specific evidence of diverticulitis. Intrapelvic contents: No acute findings are noted within the pelvis. Uterus is surgically absent. Osseous structures: The imaged osseous structures of the lumbar spine, pelvis, and proximal femurs demonstrate no acute findings. Soft tissues and musculature: Soft tissues and musculature of the body wall demonstrate no acute findings. Impression: 1. No acute findings. Stable appearance of the enlarged appendix. Nonacute findings are present as detailed. Nonspecific peripancreatic fat stranding could reflect acute pancreatitis. Correlation with serum lipase is recommended. 10/08/2016 8:50 PM PROCEDURE INTERPRETED AT [facility] DEPARTMENT OF RADIOLOGY Final Report Signed by: Dr. Prince Luis
[2016-10-08] MEDS: SODIUM CHLORIDE 0.9% 1,000 ML IV SCH (21:31)
[2016-10-08] MEDS: MORPHINE 2 MG/1 ML SYRINGE IV PRN (21:32)
[2016-10-08] MEDS: traZODone 50 MG TABLET PO SCH (22:14)
[2016-10-08] MEDS: ENOXAPARIN 40 MG/0.4 ML SYRINGE SUBCUT SCH ×2 (22:14→23:24)
[2016-10-08] MEDS: GABAPENTIN 300 MG CAPSULE PO SCH (22:14)
[2016-10-08] MEDS: PHENYTOIN ER 100 MG CAPSULE PO SCH (22:14)
[2016-10-09] MEDS: ONDANSETRON 4 MG/2 ML VIAL IV PRN (00:25)
[2016-10-09] MEDS: MORPHINE 2 MG/1 ML SYRINGE IV PRN ×2 (01:12→08:04)
[2016-10-09] MEDS ORDERED: HYDROmorphone 2 MG/1 ML VIAL IV ONE (03:24)
[2016-10-09] MEDS: SODIUM CHLORIDE 0.9% 1,000 ML IV SCH ×3 (04:56→21:36)
[2016-10-09 07:26] LABS: Basophils % 0.4 % (0.0-0.8); Eosinophils % 0.2 % (0.00-10.9); Hematocrit 32.7 VOL% (35.7-47.0); Hemoglobin 10.5 GM/DL (12.0-16.0); Immature Granulocytes % 0.7 %; Immature Granulocytes Absolute 0.04 #; Lymphocytes # 0.9 10*3/uL (1.4-4.0); Mean Corpuscular HGB Conc 32.1 GM/DL (32-36); Mean Corpuscular Hemoglobin 26 PG (27-34); Mean Corpuscular Volume 80.9 FL (87-102); Mean Platelet Volume 14.2 FL (9.6-12.0); Monocytes # 0.4 10*3/uL (0.11-0.8); Monocytes % 7.6 % (1.7-12.7); Neutrophils # 4.1 10*3/uL (1.4-7.4); Neutrophils % 75.1 % (38.7-73.9); Platelet Count 137 T/CUMM (130-400); Red Blood Count 4.04 MC/CUMM (3.8-5.5); Red Cell Distribution Width 15.9 % (9.3-17.3); White Blood Count 5.5 T/CUMM (4-12)
[2016-10-09 08:00] LABS: Albumin 3.3 G/DL (3.4-5.0); Bilirubin,Total 0.9 MG/DL (0.2-1.0); Calcium 8.6 MG/DL (8.5-10.1); Magnesium 1.8 MG/DL (1.8-2.4); Osmolality,Calculated 278.4 MOS/KG (273-304); Potassium 3.9 MMOL/L (3.5-5.1); Risk Ratio 2.57; Thyroid Stimulating Hormone 1.72 uIU/ml (0.358-3.74); VLDL CHOLESTEROL 15.2 MG/DL
[2016-10-09] MEDS: LIPASE/PROTEASE/AMYLASE 4,200 UNITS CAPSULE PO SCH ×3 (08:04→16:23)
[2016-10-09] MEDS: GABAPENTIN 300 MG CAPSULE PO SCH ×3 (08:04→20:19)
[2016-10-09] MEDS: PANTOPRAZOLE 40 MG TABLET PO SCH (08:04)
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
[2016-10-09] MEDS: HYDROmorphone 2 MG/1 ML VIAL IM PRN ×4 (11:47→23:41)
--- NOTE | 2016-10-09 14:11 | Hospitalist Progress Note ---
Assessment and Plan (1) Acute on chronic pancreatitis Status: Acute Assessment and plan: The patient continues on parenteral narcotic medication for relief of pain. We will continue with recommendations provided by the rail car maintenance mechanic. Current Visit: Yes Hospitalist: Subjective Interval history: The patient is admitted to the hospital with chronic recurring pancreatitis. The patient has history of alcoholism but is not presently a drinker. The patient has poor IV access and we do not have any access at this time. I am going to change her parenteral pain medication to IM injection. Exam - Constitutional Vitals: Period Temp Pulse Resp BP Sys/Oscar Pulse Ox Last 24 Hr 98.0 F-99.3 F 69-112 16-20 133-157/70-107 94-99 General appearance: mild distress - Respiratory Respiratory exam: Present: clear to auscultation bilaterally - Cardiovascular Cardiovascular exam: Present: regular rate and rhythm - GI/Abdominal GI/Abdominal exam: Present: hypoactive bowel sounds, tenderness. Absent: rebound Results - Labs CBC & BMP: 10/09/16 06:22 10/09/16 06:22 Lab Results: I have reviewed the past 24 hour labs
[2016-10-09] MEDS: PHENYTOIN ER 100 MG CAPSULE PO SCH (20:18)
[2016-10-09] MEDS: ENOXAPARIN 40 MG/0.4 ML SYRINGE SUBCUT SCH (20:18)
[2016-10-09] MEDS: ONDANSETRON ODT 4 MG TABLET PO PRN ×2 (20:18→23:42)
[2016-10-09] MEDS: traZODone 50 MG TABLET PO SCH (20:19)
[2016-10-10] MEDS: ONDANSETRON ODT 4 MG TABLET PO PRN (04:00)
[2016-10-10] MEDS: HYDROmorphone 2 MG/1 ML VIAL IM PRN ×4 (04:00→16:47)
[2016-10-10 07:28] LABS: Magnesium 1.8 MG/DL (1.8-2.4); Osmolality,Calculated 277.4 MOS/KG (273-304); Potassium 3.6 MMOL/L (3.5-5.1)
[2016-10-10] MEDS: LIPASE/PROTEASE/AMYLASE 4,200 UNITS CAPSULE PO SCH ×3 (08:07→16:54)
[2016-10-10] MEDS: GABAPENTIN 300 MG CAPSULE PO SCH ×3 (08:08→20:46)
[2016-10-10] MEDS: PANTOPRAZOLE 40 MG TABLET PO SCH (08:08)
--- NOTE | 2016-10-10 09:27 | Gastrointestinal Progress Note ---
Assessment and Plan (1) Acute pancreatitis Status: Acute Assessment and plan: 10/10-abdominal pain continues, increase intensity overnight. No nausea or vomiting. Nursing staff to reattempt IV access today. If unsuccessful will consider PICC line placement. Plan an addendum to followed by Dr. Mercer. 10/09-5 day history of abdominal pain with associated nausea and vomiting with prior history of recurrent pancreatitis. Normal lipase elevated [address] findings noted as below. Continue clear liquid diet, pain medication as needed , and anti-emetics. Further plan an addendum to follow Dr. Mercer. Current Visit: No Gastroenterology - PN: Subj Interval history: CC: Pancreatitis Patient is seen, awake and alert lying in bed. States she did not rest well last night due to pain in her abdomen. She states the pain is somewhat worse than it was on admission and is very tearful during visit. They have been unable to obtain IV access to this point however nursing staff is going to reattempt today. If unable to do so, we will consider proceeding with PICC line placement. Patient is taking in some fluids however not adequate enough due to her pain. Denies any fever or chills. Abdomen is soft, tender to palpation. ROS: Denies shortness of breath or chest pain Exam (Progress Note) - Constitutional Vitals: Period Temp Pulse Resp BP Sys/Oscar Pulse Ox Last 24 Hr 96.7 F-98.9 F 62-71 16-20 110-150/69-79 93-98 - Other Additional findings: General appearance: normal weight, no acute distress - Head Head exam: Present: normal inspection, normocephalic - Eye Eye exam: Present: other (Lids and conjunctive are unremarkable). Absent: scleral icterus - ENT ENT exam: Present: normal exam, normal oropharynx - Neck Neck exam: Present: normal inspection - Respiratory Respiratory exam: Present: clear to auscultation bilaterally. Absent: rales, rhonchi, wheezes - Cardiovascular Cardiovascular exam: Present: regular rate and rhythm. Absent: diastolic murmur , JVD, systolic murmur - GI/Abdominal GI/Abdominal exam: Present: normal bowel sounds, tenderness (Left upper quadrant ), soft. Absent: ascites, distended, mass, organomegaly - Extremities Exam Extremities exam: Present: normal inspection, full ROM - Back Exam Back exam: Present: normal inspection - Neurological Exam Neurological exam: Present: alert, oriented X3 - Psychiatric Psychiatric exam: Present: normal affect, normal mood - Skin Skin exam: Present: normal color, warm, dry Results - Labs CBC & BMP: 10/09/16 06:22 10/10/16 06:44 Lab Results: I have reviewed the past 24 hour labs
--- NOTE | 2016-10-10 14:07 | Hospitalist Progress Note ---
Assessment and Plan (1) Acute on chronic pancreatitis Status: Acute Assessment and plan: The patient continues on parenteral narcotic medication for relief of pain. We will continue with recommendations provided by the journalism teacher. Will request PICC line placed by interventional radiologist. Current Visit: Yes Hospitalist: Subjective Interval history: The patient still has no IV access. She is complaining of persistent pain and reduced urine output. The patient is unable to hold down enough water to keep brisk urine output. Exam - Constitutional Vitals: Period Temp Pulse Resp BP Sys/Oscar Pulse Ox Last 24 Hr 96.7 F-98.9 F 62-71 16-20 110-150/69-77 93-98 General appearance: mild distress - Respiratory Respiratory exam: Present: clear to auscultation bilaterally - Cardiovascular Cardiovascular exam: Present: regular rate and rhythm - GI/Abdominal GI/Abdominal exam: Present: hypoactive bowel sounds Results - Labs CBC & BMP: 10/09/16 06:22 10/10/16 06:44 Lab Results: I have reviewed the past 24 hour labs
[2016-10-10] MEDS ORDERED: diphenhydrAMINE 50 MG/1 ML VIAL ONE (14:42)
--- NOTE | 2016-10-10 15:17 | Post Interventional Procedure ---
Pre-op diagnosis: acute on chronic pancreatitis with n/v and no IV access Post-op diagnosis: same Procedure: PICC placement Contrast: none Flouroscopy: 0.1 min Radiologist: Al Adan Anesthesia: local (allergic to lidocaine - used sub q benadryl <1 cc) Specimens: none sent Estimated blood loss: none Complications: none Condition: stable Description/Findings: 5 Fr israel lumen left arm PICC placement done and ready to use
--- NOTE | 2016-10-10 15:22 | Interventional Radiology Rpt ---
IR PICC line insertion, US guide vascular access IR PICC Placement Peripherally-inserted central catheter (PICC) placement using ultrasound and fluoroscopic guidance Ultrasound of the left upper extremity Clinical Information: 51 year old female with acute on chronic pancreatitis, nausea vomiting and no IV access. PICC line is requested. Physician: Dr. Adan Procedure: The patient was advised of the benefits, risks, and alternatives of the procedure and informed consent was obtained. A time out was performed with verification of the patient's name, MRN, site of procedure, and type of procedure to be performed. The patient was positioned in the supine position on the angiographic table. The site was prepped and draped in the usual sterile fashion. Additionally, maximal sterile barrier technique was employed for the procedure. A concrete block maker radiograph reveals no relevant abnormality. Ultrasound examination of the left arm demonstrates patent and compressible brachial and basilic veins. Basilic vein is notably diminutive in size. The left arm was prepped and draped in the usual sterile fashion. The left brachial vein was again identified. Using ultrasound guidance, a 21 gauge needle was used to access the vein. A permanent ultrasound recording of vascular access was obtained for the patient's record. A 0.018" cope wire was then advanced into the vein. The needle was exchanged for a 5 Syriac peel-away sheath. A 5 Syriac double lumen Bard Solo PICC catheter was measured and trimmed to the 44 cm carlos. The PICC line was advanced through the sheath and into the central circulation. The catheter tip was positioned at the cavo-atrial junction. The peel-away sheath was then removed. At the conclusion of the procedure, the catheter was secured in place using a Stat-Lock device. A sterile dressing was applied. The lumens aspirate and flush freely. The catheter is ready for immediate use. The patient tolerated the procedure well and was returned to the PRU in stable condition. EBL: < 5 mL. Complications: None. Fluoroscopy time: 0.1 minutes Total number of images for this study: 3 Conclusion: Successful placement of a 5 Syriac double lumen Bard Solo power injectable PICC via the left brachial vein. The catheter is ready for immediate use. PROCEDURE INTERPRETED AT [facility] DEPARTMENT OF RADIOLOGY Final Report Signed by: Al Adan
[2016-10-10] MEDS ORDERED: LACTATED RINGERS 1,000 ML IV SCH (18:30)
[2016-10-10] MEDS: POTASSIUM CHLORIDE INJ 10 MEQ in LACTATED RINGERS 1,000 ML IV SCH (20:45)
[2016-10-10] MEDS: ENOXAPARIN 40 MG/0.4 ML SYRINGE SUBCUT SCH (20:45)
[2016-10-10] MEDS: traZODone 50 MG TABLET PO SCH (20:46)
[2016-10-10] MEDS: ONDANSETRON 4 MG/2 ML VIAL IV PRN (20:46)
[2016-10-10] MEDS: PHENYTOIN ER 100 MG CAPSULE PO SCH (20:46)
[2016-10-10] MEDS: HYDROmorphone 2 MG/1 ML VIAL IV PRN (20:47)
[2016-10-11] MEDS: ONDANSETRON 4 MG/2 ML VIAL IV PRN ×3 (01:40→21:39)
[2016-10-11] MEDS: HYDROmorphone 2 MG/1 ML VIAL IV PRN ×6 (01:40→21:39)
[2016-10-11] MEDS: POTASSIUM CHLORIDE INJ 10 MEQ in LACTATED RINGERS 1,000 ML IV SCH ×3 (04:30→20:32)
[2016-10-11] MEDS: fentaNYL 100 MCG/HR PATCH TRANSDERM SCH (09:03)
[2016-10-11] MEDS: LIPASE/PROTEASE/AMYLASE 4,200 UNITS CAPSULE PO SCH ×3 (09:04→16:52)
[2016-10-11] MEDS: PANTOPRAZOLE 40 MG TABLET PO SCH (09:04)
--- NOTE | 2016-10-11 09:17 | Gastrointestinal Progress Note ---
Assessment and Plan (1) Acute pancreatitis Status: Acute Assessment and plan: 10/11-abdominal pain continues, no vomiting episodes. Complains of nausea improved with antiemetic. PICC line placed and IV fluids initiated. Continue to monitor at this time. Plan an addendum to follow Dr. Mercer. 10/10-abdominal pain continues, increase intensity overnight. No nausea or vomiting. Nursing staff to reattempt IV access today. If unsuccessful will consider PICC line placement. Plan an addendum to followed by Dr. Mercer. 10/09-5 day history of abdominal pain with associated nausea and vomiting with prior history of recurrent pancreatitis. Normal lipase elevated [address] findings noted as below. Continue clear liquid diet, pain medication as needed , and anti-emetics. Further plan an addendum to follow Dr. Mercer. Current Visit: No Gastroenterology - PN: Subj Interval history: CC: Pancreatitis Patient seen awake and alert lying in bed. She is complaining of continued abdominal pain this morning with nausea throughout the night but denies any vomiting episodes. She had a PICC line placed on yesterday and has had IV fluids initiated and states that she does feel like this has helped some. Denies any fever or chills at this time. No repeat lipase levels noted today. Abdomen is soft, tender to palpation. ROS: Denies shortness breath chest pain Exam (Progress Note) - Constitutional Vitals: Period Temp Pulse Resp BP Sys/Oscar Pulse Ox Last 24 Hr 97.4 F-98.0 F 67-94 16-20 113-139/62-83 95-98 - Other Additional findings: General appearance: normal weight, no acute distress - Head Head exam: Present: normal inspection, normocephalic - Eye Eye exam: Present: other (Lids and conjunctive are unremarkable). Absent: scleral icterus - ENT ENT exam: Present: normal exam, normal oropharynx - Neck Neck exam: Present: normal inspection - Respiratory Respiratory exam: Present: clear to auscultation bilaterally. Absent: rales, rhonchi, wheezes - Cardiovascular Cardiovascular exam: Present: regular rate and rhythm. Absent: diastolic murmur , JVD, systolic murmur - GI/Abdominal GI/Abdominal exam: Present: normal bowel sounds, tenderness (Left upper quadrant ), soft. Absent: ascites, distended, mass, organomegaly - Extremities Exam Extremities exam: Present: normal inspection, full ROM - Back Exam Back exam: Present: normal inspection - Neurological Exam Neurological exam: Present: alert, oriented X3 - Psychiatric Psychiatric exam: Present: normal affect, normal mood - Skin Skin exam: Present: normal color, warm, dry Results - Labs CBC & BMP: 10/09/16 06:22 10/10/16 06:44 Lab Results: I have reviewed the past 24 hour labs
[2016-10-11] MEDS: GABAPENTIN 300 MG CAPSULE PO SCH ×3 (09:29→20:32)
--- NOTE | 2016-10-11 14:55 | Hospitalist Progress Note ---
Assessment and Plan (1) Acute on chronic pancreatitis Status: Acute Assessment and plan: The patient continues on parenteral narcotic medication for relief of pain. We will continue with recommendations provided by the supervisor veneer. PICC line has been placed we continue with IV hydration. We will recheck electrolytes, lipase, CBC tomorrow. Current Visit: Yes Hospitalist: Subjective Interval history: The patient continues with abdominal pain. Patient does not have vomiting or fever. She does have some mild diaphoresis today. We discussed her progress to date and plan of care. PICC line was placed yesterday and the patient's receiving IV hydration. Exam - Constitutional Vitals: Period Temp Pulse Resp BP Sys/Oscar Pulse Ox Last 24 Hr 97.4 F-98.3 F 67-94 16-20 113-139/62-83 95-98 General appearance: mild distress - Respiratory Respiratory exam: Present: clear to auscultation bilaterally - Cardiovascular Cardiovascular exam: Present: regular rate and rhythm - GI/Abdominal GI/Abdominal exam: Present: hypoactive bowel sounds Results - Labs CBC & BMP: 10/09/16 06:22 10/10/16 06:44 Lab Results: I have reviewed the past 24 hour labs
[2016-10-11] MEDS: traZODone 50 MG TABLET PO SCH (20:32)
[2016-10-11] MEDS: ENOXAPARIN 40 MG/0.4 ML SYRINGE SUBCUT SCH (20:32)
[2016-10-11] MEDS: PHENYTOIN ER 100 MG CAPSULE PO SCH (20:32)
[2016-10-12] MEDS: HYDROmorphone 2 MG/1 ML VIAL IV PRN ×6 (01:34→22:38)
[2016-10-12] MEDS: ONDANSETRON 4 MG/2 ML VIAL IV PRN ×2 (01:35→22:37)
[2016-10-12] MEDS: POTASSIUM CHLORIDE INJ 10 MEQ in LACTATED RINGERS 1,000 ML IV SCH ×3 (04:20→20:27)
[2016-10-12 05:17] LABS: Basophils % 0.4 % (0.0-0.8); Eosinophils # 0.1 10*3/uL (0.0-0.87); Eosinophils % 2.7 % (0.00-10.9); Hematocrit 31.3 VOL% (35.7-47.0); Hemoglobin 10.3 GM/DL (12.0-16.0); Immature Granulocytes % 0.8 %; Immature Granulocytes Absolute 0.04 #; Lymphocytes # 1.1 10*3/uL (1.4-4.0); Lymphocytes % 23.3 % (21.3-54.2); Mean Corpuscular HGB Conc 32.9 GM/DL (32-36); Mean Corpuscular Hemoglobin 26 PG (27-34); Mean Platelet Volume 13.2 FL (9.6-12.0); Monocytes # 0.6 10*3/uL (0.11-0.8); Monocytes % 11.5 % (1.7-12.7); Neutrophils % 61.3 % (38.7-73.9); Platelet Count 131 T/CUMM (130-400); Red Blood Count 3.96 MC/CUMM (3.8-5.5); Red Cell Distribution Width 15.5 % (9.3-17.3); White Blood Count 4.9 T/CUMM (4-12)
[2016-10-12 05:46] LABS: Albumin 3.3 G/DL (3.4-5.0); Bilirubin,Total 1.3 MG/DL (0.2-1.0); Magnesium 1.9 MG/DL (1.8-2.4); Osmolality,Calculated 270.7 MOS/KG (273-304); Potassium 3.7 MMOL/L (3.5-5.1); Total Protein 5.8 G/DL (6.4-8.3)
[2016-10-12] MEDS: PANTOPRAZOLE 40 MG TABLET PO SCH (08:05)
[2016-10-12] MEDS: LIPASE/PROTEASE/AMYLASE 4,200 UNITS CAPSULE PO SCH ×3 (08:05→18:02)
[2016-10-12] MEDS: GABAPENTIN 300 MG CAPSULE PO SCH ×3 (08:06→20:28)
--- NOTE | 2016-10-12 08:58 | Gastrointestinal Progress Note ---
Assessment and Plan (1) Acute pancreatitis Status: Acute Assessment and plan: 10/12-Abd pain improved, tolerating small amts of diet. Afebrile. Lipase at 222. Continue to monitor. Plan and addendum to follow by Dr Mercer. 10/11-abdominal pain continues, no vomiting episodes. Complains of nausea improved with antiemetic. PICC line placed and IV fluids initiated. Continue to monitor at this time. Plan an addendum to follow Dr. Mercer. 10/10-abdominal pain continues, increase intensity overnight. No nausea or vomiting. Nursing staff to reattempt IV access today. If unsuccessful will consider PICC line placement. Plan an addendum to followed by Dr. Mercer. 10/09-5 day history of abdominal pain with associated nausea and vomiting with prior history of recurrent pancreatitis. Normal lipase elevated [address] findings noted as below. Continue clear liquid diet, pain medication as needed , and anti-emetics. Further plan an addendum to follow Dr. Mercer. Current Visit: No Gastroenterology - PN: Subj Interval history: CC: Pancreatitis Patient is seen, awake and alert lying in bed. States she had a much better night and rested well without increase in abdominal pain. States that she is feeling some better at this time. She states the pain is improved as well. She is tolerating a little more of her clear liquid diet as well. Lipase 222. Abdomen is soft, with tenderness to palpation still. ROS: Denies SOB or chest pain Exam (Progress Note) - Constitutional Vitals: Period Temp Pulse Resp BP Sys/Oscar Pulse Ox Last 24 Hr 97.2 F-98.7 F 70-79 16-18 118-152/66-78 95-97 - Other Additional findings: General appearance: normal weight, no acute distress - Head Head exam: Present: normal inspection, normocephalic - Eye Eye exam: Present: other (Lids and conjunctive are unremarkable). Absent: scleral icterus - ENT ENT exam: Present: normal exam, normal oropharynx - Neck Neck exam: Present: normal inspection - Respiratory Respiratory exam: Present: clear to auscultation bilaterally. Absent: rales, rhonchi, wheezes - Cardiovascular Cardiovascular exam: Present: regular rate and rhythm. Absent: diastolic murmur , JVD, systolic murmur - GI/Abdominal GI/Abdominal exam: Present: normal bowel sounds, tenderness (Left upper quadrant ), soft. Absent: ascites, distended, mass, organomegaly - Extremities Exam Extremities exam: Present: normal inspection, full ROM - Back Exam Back exam: Present: normal inspection - Neurological Exam Neurological exam: Present: alert, oriented X3 - Psychiatric Psychiatric exam: Present: normal affect, normal mood - Skin Skin exam: Present: normal color, warm, dry Results - Labs CBC & BMP: 10/12/16 04:47 10/12/16 04:47 Lab Results: I have reviewed the past 24 hour labs
--- NOTE | 2016-10-12 12:40 | Hospitalist Progress Note ---
Assessment and Plan (1) Acute on chronic pancreatitis Status: Acute Assessment and plan: The patient continues on parenteral narcotic medication for relief of pain. We will continue with recommendations provided by the commercial sales representative. PICC line has been placed we continue with IV hydration. We will recheck electrolytes, lipase, CBC tomorrow. Current Visit: Yes Hospitalist: Subjective Interval history: The patient continues on supportive care for recrudescence of her chronic pancreatitis. PICC line is providing the opportunity to give IV hydration and urine output has improved. The patient has less pain today than she had yesterday. The patient is able to tolerate small amounts of liquid. She says that apple juice makes her belly hurt worse. Exam - Constitutional Vitals: Period Temp Pulse Resp BP Sys/Oscar Pulse Ox Last 24 Hr 97.1 F-98.7 F 70-79 16-18 118-152/68-78 95-97 General appearance: mild distress - Respiratory Respiratory exam: Present: clear to auscultation bilaterally - Cardiovascular Cardiovascular exam: Present: regular rate and rhythm - GI/Abdominal GI/Abdominal exam: Present: hypoactive bowel sounds Results - Labs CBC & BMP: 10/12/16 04:47 10/12/16 04:47 Lab Results: I have reviewed the past 24 hour labs
[2016-10-12] MEDS: ENOXAPARIN 40 MG/0.4 ML SYRINGE SUBCUT SCH (20:28)
[2016-10-12] MEDS: traZODone 50 MG TABLET PO SCH (20:28)
[2016-10-12] MEDS: PHENYTOIN ER 100 MG CAPSULE PO SCH (20:28)
[2016-10-13] MEDS: ONDANSETRON ODT 4 MG TABLET PO PRN ×2 (01:17→16:36)
[2016-10-13] MEDS: POTASSIUM CHLORIDE INJ 10 MEQ in LACTATED RINGERS 1,000 ML IV SCH ×3 (03:44→20:48)
[2016-10-13] MEDS: HYDROmorphone 2 MG/1 ML VIAL IV PRN ×5 (06:08→22:21)
[2016-10-13] MEDS: PANTOPRAZOLE 40 MG TABLET PO SCH (10:15)
[2016-10-13] MEDS: LIPASE/PROTEASE/AMYLASE 4,200 UNITS CAPSULE PO SCH ×3 (10:15→16:37)
[2016-10-13] MEDS: GABAPENTIN 300 MG CAPSULE PO SCH ×3 (10:15→20:48)
[2016-10-13 10:56] LABS: Basophils % 0.5 % (0.0-0.8); Eosinophils # 0.2 10*3/uL (0.0-0.87); Eosinophils % 3.7 % (0.00-10.9); Hematocrit 31.8 VOL% (35.7-47.0); Hemoglobin 10.6 GM/DL (12.0-16.0); Immature Granulocytes % 0.2 %; Immature Granulocytes Absolute 0.01 #; Lymphocytes # 0.8 10*3/uL (1.4-4.0); Lymphocytes % 18.6 % (21.3-54.2); Mean Corpuscular HGB Conc 33.3 GM/DL (32-36); Mean Corpuscular Hemoglobin 26 PG (27-34); Mean Corpuscular Volume 78.3 FL (87-102); Mean Platelet Volume 12.2 FL (9.6-12.0); Monocytes # 0.5 10*3/uL (0.11-0.8); Neutrophils # 2.9 10*3/uL (1.4-7.4); Platelet Count 123 T/CUMM (130-400); Red Blood Count 4.06 MC/CUMM (3.8-5.5); Red Cell Distribution Width 15.6 % (9.3-17.3); White Blood Count 4.4 T/CUMM (4-12)
[2016-10-13 11:24] LABS: Calcium 8.8 MG/DL (8.5-10.1); Magnesium 1.9 MG/DL (1.8-2.4); Osmolality,Calculated 270.7 MOS/KG (273-304); Potassium 3.9 MMOL/L (3.5-5.1)
--- NOTE | 2016-10-13 11:56 | Hospitalist Progress Note ---
<Carmen Alvarado - Last Filed: 10/13/16 11:53> Assessment and Plan - Time spent with patient Time spent with patient: Less than 30 minutes (1) Acute on chronic pancreatitis Status: Acute Assessment and plan: Lipase increase to 306 (from 222) this morning, patient c/o increased left upper quad pain with generalized abdominal pain all over. GI is following and greatly appreciate further recommendations of care. Will continue IV fluids; pain management, clear liquid diet as tolerated. Will repeat a.m. labs Current Visit: Yes (2) Nausea and vomiting Status: Acute Assessment and plan: continues to c/o some nausea without vomiting; will continue PRN coverage of nausea at this time. Current Visit: Yes Qualifiers: Vomiting type: unspecified Vomiting Intractability: intractable Qualified Code(s): R11.2 - Nausea with vomiting, unspecified Hospitalist: Subjective Interval history: Patient seen and chart reviewed. Patient verbalized increase left sided upper abdominal pain and tenderness. She verbalized increased nausea and the zofran does help but it seems to occur more often. She denies chest pain, shortness of breath, fever or chills. Will order labs for this a.m. to review. Exam - Constitutional Vitals: Period Temp Pulse Resp BP Sys/Oscar Pulse Ox Last 24 Hr 97.4 F-98.7 F 65-96 17-20 115-134/66-81 95-96 General appearance: normal weight - Head Head exam: Present: normal inspection - Eye Eye exam: Present: EOMI Pupils: Present: SABI - Neck Neck exam: Present: normal inspection - Respiratory Respiratory exam: Present: clear to auscultation bilaterally. Absent: rhonchi, stridor, wheezes - Cardiovascular Cardiovascular exam: Present: regular rate and rhythm - GI/Abdominal GI/Abdominal exam: Present: normal bowel sounds, tenderness (extreme tender to left upper quad but tenderness appears generalized) - Extremities Exam Extremities exam: Present: full ROM. Absent: edema - Neurological Exam Neurological exam: Present: alert, oriented X3 - Psychiatric Psychiatric exam: Present: normal affect, normal mood. Absent: agitated, anxious - Skin Skin exam: Present: normal color, warm, dry Results - Labs CBC & BMP: 10/13/16 10:47 10/13/16 10:47 Lab Results: I have reviewed the past 24 hour labs Labs: Lipase increase to 306 (from 222) <Bruce Piper - Last Filed: 10/13/16 12:18> Assessment and Plan (1) Acute on chronic pancreatitis Status: Acute Current Visit: Yes Exam - Constitutional Vitals: Period Temp Pulse Resp BP Sys/Oscar Pulse Ox Last 24 Hr 97.4 F-98.7 F 65-96 17-20 115-134/66-81 95-96 Results - Labs CBC & BMP: 10/13/16 10:47 10/13/16 10:47
[2016-10-13] MEDS: PHENYTOIN ER 100 MG CAPSULE PO SCH (20:47)
[2016-10-13] MEDS: ENOXAPARIN 40 MG/0.4 ML SYRINGE SUBCUT SCH (20:48)
[2016-10-13] MEDS: traZODone 50 MG TABLET PO SCH (20:48)
[2016-10-14] MEDS: HYDROmorphone 2 MG/1 ML VIAL IV PRN ×5 (03:18→20:09)
[2016-10-14] MEDS: POTASSIUM CHLORIDE INJ 10 MEQ in LACTATED RINGERS 1,000 ML IV SCH ×3 (05:53→20:14)
[2016-10-14 06:28] LABS: Basophils % 0.5 % (0.0-0.8); Eosinophils # 0.2 10*3/uL (0.0-0.87); Eosinophils % 4.5 % (0.00-10.9); Hematocrit 31.8 VOL% (35.7-47.0); Hemoglobin 10.4 GM/DL (12.0-16.0); Immature Granulocytes % 0.3 %; Immature Granulocytes Absolute 0.01 #; Lymphocytes # 0.9 10*3/uL (1.4-4.0); Lymphocytes % 22.3 % (21.3-54.2); Mean Corpuscular HGB Conc 32.7 GM/DL (32-36); Mean Corpuscular Hemoglobin 26 PG (27-34); Mean Corpuscular Volume 78.3 FL (87-102); Mean Platelet Volume 12.5 FL (9.6-12.0); Monocytes # 0.5 10*3/uL (0.11-0.8); Monocytes % 11.8 % (1.7-12.7); Neutrophils # 2.4 10*3/uL (1.4-7.4); Neutrophils % 60.6 % (38.7-73.9); Platelet Count 126 T/CUMM (130-400); Red Blood Count 4.06 MC/CUMM (3.8-5.5); Red Cell Distribution Width 15.7 % (9.3-17.3)
[2016-10-14 07:02] LABS: Calcium 8.7 MG/DL (8.5-10.1); Magnesium 1.9 MG/DL (1.8-2.4); Osmolality,Calculated 272.5 MOS/KG (273-304)
[2016-10-14 07:18] LABS: Albumin 3.2 G/DL (3.4-5.0); Bilirubin,Total 0.5 MG/DL (0.2-1.0); Calcium 8.7 MG/DL (8.5-10.1); Osmolality,Calculated 274.4 MOS/KG (273-304)
[2016-10-14] MEDS: LIPASE/PROTEASE/AMYLASE 4,200 UNITS CAPSULE PO SCH ×3 (07:21→16:23)
[2016-10-14] MEDS: ONDANSETRON ODT 4 MG TABLET PO PRN ×2 (11:36→20:17)
[2016-10-14] MEDS: fentaNYL 100 MCG/HR PATCH TRANSDERM SCH (11:37)
--- NOTE | 2016-10-14 12:58 | Hospitalist Progress Note ---
Assessment and Plan (1) Acute on chronic pancreatitis Status: Acute Assessment and plan: The patient continues on parenteral narcotic medication for relief of pain. We will continue with recommendations provided by the career services officer. PICC line has been placed we continue with IV hydration. I have ordered a CAT scan today to reevaluate the pancreas. Current Visit: Yes Hospitalist: Subjective Interval history: This is a 58-year-old lady who had stent placement after intervention by Dr. Salazar in the right femoral artery. 2 weeks following surgery the patient developed septicemia and has cultured methicillin sensitive staph aureus. The bacteremia is persistent and last culture on the still shows growth. Further cultures were obtained on the and are not yet intubated. The patient's symptoms are improving with the right leg being less tender and toes no longer blue. The patient has a possible fluid collection and/or aneurysm at the femoral artery site which Dr. Moreland is evaluating. We note that access was via the left groin which is contralateral to the symptoms. Exam - Constitutional Vitals: Period Temp Pulse Resp BP Sys/Oscar Pulse Ox Last 24 Hr 96.7 F-99 F 72-88 18-21 110-158/61-96 94-97 General appearance: mild distress (Moderate distress is a little better than yesterday) - Respiratory Respiratory exam: Present: clear to auscultation bilaterally - Cardiovascular Cardiovascular exam: Present: regular rate and rhythm - GI/Abdominal GI/Abdominal exam: Present: hypoactive bowel sounds. Absent: distended, firm Results - Labs CBC & BMP: 10/14/16 06:18 10/14/16 06:18 Lab Results: I have reviewed the past 24 hour labs Labs: Lipase 350
--- NOTE | 2016-10-14 13:56 | CT Report ---
Referring physician: Bruce Piper EXAM: CT abdomen and pelvis without contrast DATE: 10/14/2016 COMPARISON: 10/08/2016 REASON: Generalized abdominal pain, pancreatitis TECHNIQUE: Axial images of the abdomen and pelvis were obtained without the use of IV contrast. Oral contrast given Coronal and sagittal reformatted images were also provided. Total DLP is 334.10 mGy*cm. FINDINGS: Tiny left pleural effusion with atelectasis at the lung bases. The liver is normal in size with no masses or dilated ducts. Minimal pneumobilia with prior cholecystectomy. The spleen remains borderline in size to minimally enlarged. The pancreas remains minimally prominent in size with no progressive adjacent fluid or obvious mass. The adrenal glands and kidneys are stable in appearance. The abdominal aorta is normal in size with no adjacent adenopathy. Incomplete distention of the stomach with oral contrast. No significant dilatation of the small bowel. Diverticulosis of the colon with persistent enlargement of the appendix measuring 12 mm with no contrast in the appendix. No significant adjacent fluid or soft tissue stranding. Prior hysterectomy with unremarkable urinary bladder. Degenerative changes are noted. IMPRESSION: Tiny left pleural effusion with atelectasis at the lung bases. Prior cholecystectomy with minimal pneumobilia.. The spleen remains borderline in size to minimally enlarged. The pancreas remains minimally prominent in size with no pseudocyst or progressive findings. It is difficult to exclude persistent mild pancreatitis. Diverticulosis of the colon. Persistent minimal enlargement of the nonopacified appendix. This finding makes it difficult to exclude low-grade chronic appendicitis and correlation with physical exam recommended. Prior hysterectomy. The CT exam was performed using one or more of the following dose reduction techniques: Automated exposure control and adjustment of the mA and/or kV according to patient size. PROCEDURE INTERPRETED AT [facility] DEPARTMENT OF RADIOLOGY Final Report Signed by: Dr. Lina Zaidi
[2016-10-14] MEDS: GABAPENTIN 300 MG CAPSULE PO SCH ×3 (14:52→20:12)
[2016-10-14] MEDS: PANTOPRAZOLE 40 MG TABLET PO SCH (16:20)
[2016-10-14] MEDS: traZODone 50 MG TABLET PO SCH (20:13)
[2016-10-14] MEDS: ENOXAPARIN 40 MG/0.4 ML SYRINGE SUBCUT SCH (20:13)
[2016-10-14] MEDS: PHENYTOIN ER 100 MG CAPSULE PO SCH (20:13)
[2016-10-15] MEDS: HYDROmorphone 2 MG/1 ML VIAL IV PRN ×3 (04:08→13:04)
[2016-10-15] MEDS: POTASSIUM CHLORIDE INJ 10 MEQ in LACTATED RINGERS 1,000 ML IV SCH ×2 (04:43→13:03)
[2016-10-15] MEDS: LIPASE/PROTEASE/AMYLASE 4,200 UNITS CAPSULE PO SCH ×3 (08:58→17:01)
[2016-10-15] MEDS: GABAPENTIN 300 MG CAPSULE PO SCH ×3 (08:59→20:42)
[2016-10-15] MEDS: PANTOPRAZOLE 40 MG TABLET PO SCH (08:59)
--- NOTE | 2016-10-15 09:48 | Gastrointestinal Progress Note ---
Assessment and Plan (1) Acute pancreatitis Status: Acute Assessment and plan: 10/15-abdominal pain improved, tolerating diet. CT findings noted as below. Diet to be advanced today and consideration for possible discharge home tomorrow. Plan an addendum to followed by Dr. Mercer. 10/12-Abd pain improved, tolerating small amts of diet. Afebrile. Lipase at 222. Continue to monitor. Plan and addendum to follow by Dr Mercer. 10/11-abdominal pain continues, no vomiting episodes. Complains of nausea improved with antiemetic. PICC line placed and IV fluids initiated. Continue to monitor at this time. Plan an addendum to follow Dr. Mercer. 10/10-abdominal pain continues, increase intensity overnight. No nausea or vomiting. Nursing staff to reattempt IV access today. If unsuccessful will consider PICC line placement. Plan an addendum to followed by Dr. Mercer. 10/09-5 day history of abdominal pain with associated nausea and vomiting with prior history of recurrent pancreatitis. Normal lipase elevated [address] findings noted as below. Continue clear liquid diet, pain medication as needed , and anti-emetics. Further plan an addendum to follow Dr. Mercer. Current Visit: No Gastroenterology - PN: Subj Interval history: CC: Pancreatitis Patient is seen awake and alert lying in bed. States that she is feeling a little better however she is having the continued pain. Patient states that she is aware that she is going to have to deal with this pain off and on with her prior history of pancreatitis. CT of abdomen was repeated on yesterday without contrast with findings noted of minimally prominent pancreas with no pseudocyst or progressive findings. Her pain level and location has not changed since onset. Lipase levels remain down at 350. She is afebrile without leukocytosis. She is going to have her diet advanced today and if she tolerates that she can possibly can be considered for discharge on tomorrow. Abdomen is soft, mild tenderness. ROS: Denies shortness of breath or chest pain Exam (Progress Note) - Constitutional Vitals: Period Temp Pulse Resp BP Sys/Oscar Pulse Ox Last 24 Hr 97.1 F-98.1 F 68-88 16-20 102-158/63-96 95-97 General appearance: normal weight, no acute distress - Head Head exam: Present: normal inspection, normocephalic - Eye Eye exam: Present: other (Lids and conjunctive are unremarkable). Absent: scleral icterus - ENT ENT exam: Present: normal exam, normal oropharynx - Neck Neck exam: Present: normal inspection - Respiratory Respiratory exam: Present: clear to auscultation bilaterally. Absent: rales, rhonchi, wheezes - Cardiovascular Cardiovascular exam: Present: regular rate and rhythm. Absent: diastolic murmur , JVD, systolic murmur - GI/Abdominal GI/Abdominal exam: Present: normal bowel sounds, soft. Absent: ascites, distended, mass, organomegaly, tenderness - Extremities Exam Extremities exam: Present: normal inspection, full ROM - Back Exam Back exam: Present: normal inspection - Neurological Exam Neurological exam: Present: alert, oriented X3 - Psychiatric Psychiatric exam: Present: normal affect, normal mood - Skin Skin exam: Present: normal color, warm, dry Results - Labs CBC & BMP: 10/14/16 06:18 10/14/16 06:18 Lab Results: I have reviewed the past 24 hour labs - Diagnostic Findings Procedure: CT Abdomen and Pelvis: report reviewed by me
--- NOTE | 2016-10-15 15:32 | Hospitalist Progress Note ---
Assessment and Plan (1) Acute on chronic pancreatitis Status: Acute Assessment and plan: advance to gi soft diet, stop dilaudid, prn norco Current Visit: Yes (2) History of alcohol abuse Status: Acute Current Visit: No (3) Seizures Status: Chronic Assessment and plan: cont dilantin at bedtime Current Visit: No (4) Anemia Status: Acute Assessment and plan: stable Current Visit: Yes Hospitalist: Subjective Interval history: Doing better today wants something more to eat. Will advance diet possibly home tomorrow Exam - Constitutional Vitals: Period Temp Pulse Resp BP Sys/Oscar Pulse Ox Last 24 Hr 97.1 F-98.1 F 68-88 16-20 102-143/63-83 95-97 Exam: Heart Rate-[RRR] Lungs-[CTAB] GI-[+bs soft, NT] Ext-[no edema] Neuro [Motor 5/5], [alert and oriented times 3] psych [normal mood and affect] General [no acute distress] Results - Labs CBC & BMP: 10/14/16 06:18 10/14/16 06:18 Lab Results: I have reviewed the past 24 hour labs Labs: Lipase 350
[2016-10-15] MEDS: PHENYTOIN ER 100 MG CAPSULE PO SCH (20:43)
[2016-10-15] MEDS: traZODone 50 MG TABLET PO SCH (20:44)
[2016-10-15] MEDS: ENOXAPARIN 40 MG/0.4 ML SYRINGE SUBCUT SCH (20:46)
[2016-10-16] MEDS: LIPASE/PROTEASE/AMYLASE 4,200 UNITS CAPSULE PO SCH (07:34)
[2016-10-16] MEDS: GABAPENTIN 300 MG CAPSULE PO SCH (09:05)
[2016-10-16] MEDS: PANTOPRAZOLE 40 MG TABLET PO SCH (09:05)
--- NOTE | 2016-10-16 09:26 | Discharge Summary ---
<Romel Roger - Last Filed: 10/16/16 09:15> Hospital Course - Hospital Course Hospital Course: Ms. Peralta is a 51 year old female who was admitted through the [facility] ED on complaining of 5 days of abdominal pain with associated nause and vomiting. She was evaluated and found to have acute on chronic pancreatitis with intractable abdominal pain, N/V. She was admitted to the hospital medicine service with GI consult and supportive care. Due to poor IV access, and the continued need for adequate hydration and IV medication, the patient had a PICC line placed on 10/09/2016. The patient improved with supportive therapy including IV fluids, narcotics and clear liquid diet. Repeat CT of the abdomen showed reduction in the pancreatic inflammation and the patient's diet was advanced to GI soft. Dilaudid was stopped on 10/15/2016 and the patient was started on tramadol PRN. The remainder of her course was uncomplicated. At this time, she has reached maximum benefit from hospitalization and is stable for discharge. She should follow-up with her PCP in 1-2 weeks. Patient seen and examined. Hospital course reviewed and edited. - Time spent with patient Time with patient DS: Greater than 30 minutes Discharge Plan - Discharge Data Disposition: Disch To Home/Self Care - Discharge Medications New Pantoprazole Tab [Protonix Tab] 40 mg PO DAILY #30 tablet Continue Phenytoin ER Cap [Dilantin Cap] 300 mg PO BEDTIME traZODone [Desyrel] 100 mg PO BEDTIME Pancrelipase 4,200 Units [Pancreaze 4,200 Units] 1 capsule PO TID W/MEALS # 90 capsule Ondansetron Odt Tab [Zofran Odt] 4 mg PO Q4H PRN PRN Reason: Nausea Gabapentin Cap/Tab [Neurontin Cap/Tab] 300 mg PO TID Ondansetron [Ondansetron Odt] 8 mg PO Q4H PRN #10 tab.rapdis PRN Reason: Nausea fentaNYL 100 MCG/HR PATCH [Duragesic 100 Patch] 1 patch TRANSDERM Q3DAY #5 traMADol TAB [Ultram] 50 mg PO Q6H PRN #45 tablet PRN Reason: Pain - Follow Up or Referral Follow Up: pmd, [Other] - 2 Weeks - Forms/Instructions Exam - Constitutional Vitals: Period Temp Pulse Resp BP Sys/Oscar Pulse Ox Last 24 Hr 97.3 F-98.6 F 68-95 16-20 107-154/64-78 95-96 Discharge Results Procedures and tests throughout hospitalization: Pending Orders 10/17/16 04:00 Lipase IN AM 10/18/16 04:00 Lipase IN AM Labs on day of discharge: Labs from last 24 hours 10/16/16 04:27 Lipase 259.0 D DS: Provider Date of admission: 10/11/16 09:03 Primary care physician: Belinda Brown Attending physician on admission: Radha Wilkes MD Consults: 10/08/16 20:09 Consult to Physician [CONS] Routine Comment: recurrent pancreatitis Consulting Provider: Atif Mercer Consulting Provider Notified: Yes When should Consulting Provider be notified: Now Person Notified: omar smith Date Notified: 10/09/16 Time Notified: 09:29 Discharging clinician: Romel WHITTINGTON Expected date of discharge: 10/16/16 <Lashell Burroughs - Last Filed: 10/16/16 09:44> Hospital Course - Time spent with patient Time with patient DS: Greater than 30 minutes (45 min) Diagnosis - Discharge Diagnosis (1) Acute on chronic pancreatitis Status: Acute (2) History of alcohol abuse Status: Acute (3) Seizures Status: Chronic (4) Anemia Status: Acute Discharge Plan - Discharge Data Condition at Discharge: Stable Discharge Diet: advance to your usual diet Activity: resume usual activities as tolerated Hygiene: no restrictions Weight Bearing at Discharge: full weight bearing Contact your physician if you experience:: fever over 101 Exam - Constitutional General appearance: normal weight, no acute distress - Respiratory Respiratory exam: Present: clear to auscultation bilaterally. Absent: rhonchi, wheezes - Cardiovascular Cardiovascular exam: Present: regular rate and rhythm. Absent: systolic murmur - GI/Abdominal GI/Abdominal exam: Present: normal bowel sounds, tenderness, soft - Extremities Exam Extremities exam: Present: normal inspection, normal capillary refill - Neurological Exam Neurological exam: Present: alert, oriented X3
[2016-10-16 11:53] VITALS: BP 132/85
== END 2016-10-16 11:34 | disposition home or self-care (01) | DRG 440 ==
LOC: N.EDINP 13:55 → N.ED 13:55 → SUATTDRO 19:28 → N.3E 20:27 → SUATTDRO 10-11 09:03
PROVIDERS: ADMIT Family Medicine; ATTEND Internal Medicine